=== PATIENT | female | born 1995 | race Hispanic/Latino ===

== ENCOUNTER 2021-11-25 11:34 | Emergency (ER) | payer OTHER, SELFPAY ==
[2021-11-25 11:35] VITALS: BP 111/68; PULSE 60; RESP 18; TEMP 36.2; O2SAT 99; BMI 22.3
--- NOTE | 2021-11-25 11:42 | ED.RN ---
DRUG SCREEN COMPLETE AIRPLANE TESTER
--- NOTE | 2021-11-25 12:55 | EDS_ITS ---
HPI History of Present Illness HPI Narrative: History and physical is limited secondary to language barrier. Patient only speaks Armenian. [employer] full time staff interpreter was used. She states that she was at work, and she was bleeding calfs. She states a coworker did not see her and accidentally cut her right hand. She sustained a laceration to the medial aspect of her right hand just below the fifth digit. She denies any significant past medical history. She does not take daily medications or have any allergies. She is unsure of her last tetanus immunization. She denies other injuries. She states she is right-hand dominant. Chief Complaint: Laceration PFSH PFSH Home Medications NK 11/25/21 [History Last Taken Unknown] Allergy/AdvReac Type Severity Reaction Status Date / Time No Known Allergies Allergy Verified 11/25/21 11:41 Social History Smoking Status: Never smoker ROS ROS ED ROS Narrative Constitutional: No fever, no chills. HEENT: No sore throat. No neck pain. No loss of vision. No rhinorrhea. Cardiovascular: No chest pain. No palpitations. No pedal edema. Respiratory: No cough, no shortness of breath. Abdominal: No abdominal pain. No nausea. No vomiting. Genitourinary: No dysuria. No hematuria. Musculoskeletal: No myalgias. No arthralgias. Neurologic: No headaches. No dizziness. No lightheadedness. Skin: No rash. No change in color. Laceration to right hand, medial aspect. Psychiatric: No depression. No anxiety. EXAM Physical Exam Narrative Exam Narrative: Afebrile. Vital signs noted. HEENT: Normocephalic. Atraumatic. PERRL, EOMI. Neck soft and supple. No point tenderness or step off. Cardiovascular: Regular rate and rhythm. No murmurs, rubs, or gallops appreciated. Respiratory: No tachypnea. Lungs clear to auscultation bilaterally. Gastrointestinal: Abdomen soft, nontender, with normoactive bowel sounds. No rebound or guarding. Neurological: Awake. Alert. Nonfocal, nonlateralizing. Skin: No rash. Normal color. No pallor. There is a 1.3 cm laceration on the medial aspect of her right hand running vertically at the base of the fifth digit, more along the distal metacarpal. No active bleeding. Full range of motion of hand and fingers. Good capillary refill. Musculoskeletal: No pedal edema. Full range of motion extremities. Const Vital Signs: 11/25/21 11:35 Temperature 97.1 F L Temperature Source Temporal Pulse Rate 60 Respiratory Rate 18 Blood Pressure 111/68 Blood Pressure Mean 82 Pulse Ox 99 Oxygen Delivery Method Room Air MDM MDM MDM Narrative Medical decision making narrative: Laceration will be repaired. See procedure note for details. She was administered an Adacel immunization. Wound was cleansed. Patient tolerated procedure well. She will have the sutures removed in 7 to 10 days at the [facility] as this is a Worker's Compensation case. I feel she be discharged safely home with follow-up. Return instructions were reviewed. Disposition is discharged home in stable condition. Procedures Lacerations Right Hand: Length: 15.6 in Depth: Skin Shape: Linear Prep: Sterile Conditions and Chlorhexadine Laceration repair: Irrigated and Lidocaine (1%) Irrigated (ml): 150 Number of Sutures/Anna: 3 Suture Information: Ethilon, Simple and 4-0 Discharge Plan Triage Chief Complaint: Laceration ED Provider: Jase Merchant Dx/Rx/DC Orders Clinical Impression: Laceration of hand, right, Immunization, tetanus-diphtheria Instructions: ED Laceration, Hand: All Closures Prescriptions: No Action NK RF: 0 Primary Care Provider: Care Physician,No Primary Referrals: Care Physician,No Primary [Primary Care Provider] - [facility] [NON-STAFF] - 10 Day for suture removal Disposition Disposition: Home, Self Care
[2021-11-25] MEDS: Diphth,Pertuss(Acell),Tet Vac 0.5 ML Vial IM (13:01)
[2021-11-25] MEDS: Lidocaine 1% (20 ml mdv) 20 ML Vial INFILT (13:02)
== END 2021-11-25 14:26 | disposition home or self-care (01) ==
PROVIDERS: Emergency Provider Emergency Medicine; Visit Provider Emergency Medicine
DX: S61.411A Laceration without foreign body of right hand, initial encounter (principal); W26.8XXA Contact with other sharp object(s), not elsewhere classified, initial encounter; Y99.0 Civilian activity done for income or pay; Z23 Encounter for immunization
CPT/HCPCS: 12001; 90715; 99283

== ENCOUNTER 2021-12-05 14:57 | Emergency (ER) | payer OTHER, SELFPAY ==
[2021-12-05 14:58] VITALS: BP 121/35; PULSE 94; RESP 16; TEMP 36.4; O2SAT 99; BMI 22.3
--- NOTE | 2021-12-05 17:12 | EX.ED.DYSGE1 ---
HPI History of Present Illness Chief Complaint: Suture Remv Detail of Chief Complaint: Right small finger suture removal Informant: patient Onset/Context/Timing Timing: Continuous Current Severity: Mild Maximum Severity: Mild Narrative Narrative: 26-year-old Armenian female week or so ago had a laceration to her right small finger. It was repaired. She presents today for suture removal. She is unable to flex the finger. Prior similar symptoms: No Recent Illness/Hospitalization: No PFSH PFSH Home Medications NK 11/25/21 [History Last Taken Unknown] Allergy/AdvReac Type Severity Reaction Status Date / Time No Known Allergies Allergy Verified 12/05/21 15:00 Social History Smoking Status: Never smoker ROS ROS ED ROS Narrative Denies. Review of Systems ROS Unobtainable: Denies due to encephalopathy Constitutional Constitutional ED: Denies fever(s) Eyes Eyes: Denies change in vision ENT ENT ED: Denies ear pain Cardiovascular Cardiovascular: Denies chest pain Respiratory/Chest Respiratory/Chest: Denies dyspnea Gastrointestinal Gastrointestinal: Denies abdominal pain Genitourinary Genitourinary ED: Denies dysuria Musculoskeletal Musculoskeletal: Denies myalgias Integumentary Denies rash Neurologic Neurologic: Denies headache(s) Psychiatric Psychiatric: Denies depression Endocrine Endocrinology: Denies polyuria Allergic/Immunologic Allergic/Immunologic ED: Denies urticaria EXAM Physical Exam Narrative Exam Narrative: 26-year-old female no acute distress. Vital signs stable afebrile. Her right hand on the ulnar side of her right small finger of the laceration has been repaired with 3 stitches. Wound is healed nicely. She has complete 180 degrees of extension normal cap refill she cannot flex the right small finger. There is no signs of infection. I suspect from the initial injury she has a flexor tendon laceration. Using the certified court/medical interpreter I spoke with the patient and it had her understand that she needs to have this seen in follow-up by hand specialist to get the flexor tendon repaired. If she wants her hand to function normally again. Const Vital Signs: 12/05/21 14:58 Temperature 97.5 F L Temperature Source Temporal Pulse Rate 94 Respiratory Rate 16 Blood Pressure 121/35 H Blood Pressure Mean 63 Pulse Ox 99 Oxygen Delivery Method Room Air Positive well nourished and well developed General Appearance ED: well developed and NAD HEENT Reports moist mucous membranes Negative for trauma or tenderness Eyes PERRL and EOMs intact bilaterally Neck no lymphadenopathy, supple and no JVD Neuro oriented x3 Sensorium / Orientation: alert Motor Exam: strength 5/5 throughout Psych mental status grossly normal Skin no rashes or lesions noted and no wounds MDM MDM MDM Narrative Medical decision making narrative: Patient presents with suture removal after repair of the right small finger. My concern is that there is a flexor tendon injury. Using the certified court/medical interpreter I spoke to her and the female friend that was with the patient. They understand we can take the sutures out but she will need to have this repaired and reevaluated if she wants her right small finger to work normally. Discharge Plan Triage Chief Complaint: Suture Remv ED Provider: Thony Velazco Dx/Rx/DC Orders Clinical Impression: Visit for suture removal, Flexor tendon laceration of finger with open wound Instructions: ED Tendon Laceration Prescriptions: No Action NK RF: 0 Primary Care Provider: Care Physician,No Primary Referrals: Dave Crews MD [NON-STAFF] - As soon as possible Care Physician,No Primary [Primary Care Provider] - Activity Restrictions/Additional Instructions: The laceration your finger is repaired. However I am concerned that the tendon that flexes your small finger was also lacerated. That is why you cannot bend your finger normally. You need to see a hand specialist to have this evaluated and possibly repair the tendon so that your right small finger works normally. Print Language: Armenian Disposition Disposition: Home, Self Care
== END 2021-12-05 17:36 | disposition home or self-care (01) ==
PROVIDERS: Emergency Provider Emergency Medicine; Visit Provider Emergency Medicine
DX: S66.126D Laceration of flexor muscle, fascia and tendon of right little finger at wrist and hand level, subsequent encounter (principal); Z48.02 Encounter for removal of sutures
CPT/HCPCS: 99281; 99282